=== PATIENT | female | born 1965 | race Caucasian/White ===

== ENCOUNTER 2020-03-07 11:47 | Outpatient (CLI) | payer OTHER, SELFPAY ==
[2020-03-07 13:24] LABS: Thyroid Stimulating Hormone 0.081 uIU/mL (0.465-4.680)
[2020-03-07 13:49] LABS: Free T4 Free Thyroxine 1.49 ng/mL (0.78-2.19)
[2020-03-11 12:10] LABS: Triiodothyronine T3 Free 2.9 pg/mL (2.3-4.2)
== END 2020-03-07 11:48 | disposition home or self-care (01) ==
PROVIDERS: Visit Provider Internal Medicine Endocrinology, Diabetes & Metabolism
DX: E03.9 Hypothyroidism, unspecified (principal)
CPT/HCPCS: 36415; 84439; 84443; 84481

== ENCOUNTER 2020-03-24 12:31 | Outpatient (CLI) | payer OTHER, SELFPAY ==
[2020-03-24 14:18] LABS: Thyroid Stimulating Hormone 0.116 uIU/mL (0.465-4.680)
== END 2020-03-24 12:32 | disposition home or self-care (01) ==
PROVIDERS: PCP Physician Assistant; Visit Provider Internal Medicine Endocrinology, Diabetes & Metabolism
DX: E03.9 Hypothyroidism, unspecified (principal)
CPT/HCPCS: 36415; 84439; 84443

== ENCOUNTER 2020-05-05 17:04 | Outpatient (CLI) | payer OTHER, SELFPAY ==
[2020-05-05 18:05] LABS: Thyroid Stimulating Hormone 0.075 uIU/mL (0.465-4.680)
[2020-05-05 18:25] LABS: Free T4 Free Thyroxine 1.17 ng/mL (0.78-2.19)
== END 2020-05-05 17:05 | disposition home or self-care (01) ==
LOC: ANHLAB 17:06
PROVIDERS: PCP Physician Assistant; Visit Provider Internal Medicine Endocrinology, Diabetes & Metabolism
DX: E89.0 Postprocedural hypothyroidism (principal); Z68.25 Body mass index [BMI] 25.0-25.9, adult
CPT/HCPCS: 36415; 84439; 84443

== ENCOUNTER 2020-06-27 13:41 | Outpatient (CLI) | payer OTHER, SELFPAY ==
[2020-06-27 17:26] LABS: Thyroid Stimulating Hormone 0.271 uIU/mL (0.465-4.680)
[2020-06-27 17:40] LABS: Free T4 Free Thyroxine 1.35 ng/mL (0.78-2.19)
== END 2020-06-27 13:42 | disposition home or self-care (01) ==
PROVIDERS: PCP Physician Assistant; Visit Provider Internal Medicine Endocrinology, Diabetes & Metabolism
DX: E89.0 Postprocedural hypothyroidism (principal)
CPT/HCPCS: 36415; 84439; 84443

== ENCOUNTER 2020-09-11 16:57 | Outpatient (CLI) | payer OTHER, SELFPAY ==
[2020-09-11 19:01] LABS: Free T4 Free Thyroxine 0.95 ng/mL (0.78-2.19)
== END 2020-09-11 16:58 | disposition home or self-care (01) ==
LOC: ANHLAB 16:58
PROVIDERS: PCP Physician Assistant; Visit Provider Internal Medicine Endocrinology, Diabetes & Metabolism
DX: E89.0 Postprocedural hypothyroidism (principal)
CPT/HCPCS: 36415; 84439; 84443

== ENCOUNTER 2020-10-31 09:38 | Outpatient (CLI) | payer OTHER, SELFPAY ==
[2020-10-31 10:57] LABS: Free T4 Free Thyroxine 1.11 ng/mL (0.78-2.19)
== END 2020-10-31 09:39 | disposition home or self-care (01) ==
LOC: ANHLAB 09:39
PROVIDERS: PCP Physician Assistant; Visit Provider Internal Medicine Endocrinology, Diabetes & Metabolism
DX: E89.0 Postprocedural hypothyroidism (principal)
CPT/HCPCS: 36415; 84439; 84443

== ENCOUNTER 2021-03-16 14:06 | Outpatient (CLI) | payer OTHER, SELFPAY ==
[2021-03-16 15:40] LABS: Free T4 Free Thyroxine 1.03 ng/mL (0.78-2.19)
== END 2021-03-16 14:07 | disposition home or self-care (01) ==
LOC: ANHLAB 14:09
PROVIDERS: PCP Physician Assistant; Visit Provider Internal Medicine Endocrinology, Diabetes & Metabolism
DX: E89.0 Postprocedural hypothyroidism (principal)
CPT/HCPCS: 36415; 84439; 84443

== ENCOUNTER 2021-06-16 07:57 | Outpatient (CLI) | payer OTHER, SELFPAY ==
[2021-06-16 09:14] LABS: Basophils Percent Auto 0.3 % (0.2-1.2); Eosinophils Absolute Auto 0.2 K/mm3 (0-0.3); Hematocrit 41.5 % (37.0-47.0); Hemoglobin 13.2 g/dL (12.0-15.0); Immature Granulocyte Absolute 0.01 K/mm3 (0.00-0.031); Immature Granulocyte Percent A 0.3 % (0-0.5); Lymphocytes Absolute Auto 1.46 K/mm3 (0.9-3.2); Mean Corpuscular HGB Conc 31.8 g/dl (32-36); Mean Corpuscular Hemoglobin 30.6 pg (26-34); Mean Corpuscular Volume 96.3 fl (80-100); Mean Platelet Volume 9.7 fl (7.4-10.4); Monocytes Absolute Auto 0.4 K/mm3 (0.1-0.6); Monocytes Percent Auto 12.6 % (2.6-8.5); Neutrophils Absolute Auto 1.4 K/mm3 (1.3-6.7); Neutrophils Percent Auto 38.8 % (45.5-73.1); Platelet Count Result 234 k/mm3 (150-375); Red Blood Count 4.31 M/mm3 (4.2-5.4); Red Cell Distribution Width 12.8 % (11.5-14.5); White Blood Count 3.5 K/mm3 (4.5-10.0)
[2021-06-16 09:35] LABS: Alanine Aminotransferase 21 U/L (4-35); Albumin Level 4.3 g/dL (3.5-5.1); Alkaline Phosphatase 62 U/L (38-126); Amylase 69 U/L (30-110); Anion Gap 8 mmol/L (8-16); Aspartate Amino Transferase 29 U/L (14-36); Bilirubin,Total 0.4 mg/dL (0.2-1.3); Blood Urea Nitrogen 12 mg/dL (7-17); Calcium 9.7 mg/dL (8.4-10.2); Carbon Dioxide 26 mmol/L (22-30); Chloride 102 mmol/L (98-107); Cholesterol 198 mg/dL (0-200); Estimated Glomerular Filt Rate > 60; Glucose 93 mg/dL (65-110); HDL Direct 65 mg/dL; Lipase 48 U/L (23-300); Potassium 3.9 mmol/L (3.4-5.0); Sodium 136 mmol/L (137-145); Triglycerides 71 mg/dL (<150)
[2021-06-16 09:46] LABS: LDL Cholesterol Direct 99 mg/dL
[2021-06-16 09:50] LABS: Vitamin D 25 Hydroxy 60.4 ng/mL
== END 2021-06-16 07:58 | disposition home or self-care (01) ==
PROVIDERS: PCP Physician Assistant; Visit Provider Physician Assistant
DX: R10.11 Right upper quadrant pain (principal); E55.9 Vitamin D deficiency, unspecified; Z00.00 Encounter for general adult medical examination without abnormal findings; Z13.1 Encounter for screening for diabetes mellitus; Z13.0 Encounter for screening for diseases of the blood and blood-forming organs and certain disorders involving the immune mechanism; Z13.220 Encounter for screening for lipoid disorders
CPT/HCPCS: 36415; 80053; 80061; 82150; 82306; 83690; 85025

== ENCOUNTER 2021-09-01 17:01 | Outpatient (CLI) | payer OTHER, SELFPAY ==
[2021-09-01 17:49] LABS: Free T4 Free Thyroxine 1.29 ng/mL (0.78-2.19)
== END 2021-09-01 17:02 | disposition home or self-care (01) ==
LOC: ANHLAB 17:02
PROVIDERS: PCP Physician Assistant; Visit Provider Internal Medicine Endocrinology, Diabetes & Metabolism
DX: E89.0 Postprocedural hypothyroidism (principal)
CPT/HCPCS: 36415; 84439; 84443

== ENCOUNTER 2022-03-16 17:02 | Outpatient (CLI) | payer OTHER, SELFPAY ==
[2022-03-16 18:59] LABS: Free T4 Free Thyroxine 1.15 ng/mL (0.78-2.19)
== END 2022-03-16 17:03 | disposition home or self-care (01) ==
LOC: ANHLAB 17:03
PROVIDERS: PCP Physician Assistant; Visit Provider Internal Medicine Endocrinology, Diabetes & Metabolism
DX: E89.0 Postprocedural hypothyroidism (principal)
CPT/HCPCS: 36415; 84439; 84443

== ENCOUNTER 2022-11-23 12:25 | Outpatient (CLI) | payer OTHER, SELFPAY ==
[2022-11-23 13:25] LABS: Free T4 Free Thyroxine 1.18 ng/mL (0.78-2.19)
== END 2022-11-23 12:26 | disposition home or self-care (01) ==
LOC: ANHLAB 12:26
PROVIDERS: PCP Physician Assistant; Visit Provider Internal Medicine Endocrinology, Diabetes & Metabolism
DX: E89.0 Postprocedural hypothyroidism (principal)
CPT/HCPCS: 36415; 84439; 84443

== ENCOUNTER 2023-11-18 07:48 | Outpatient (CLI) | payer OTHER, SELFPAY | END 2023-11-18 07:49 | disposition home or self-care (01) | LOC: ANHLAB 07:49 | PROVIDERS: PCP Physician Assistant; Visit Provider Internal Medicine Endocrinology, Diabetes & Metabolism | DX: E89.0 Postprocedural hypothyroidism (principal) | CPT/HCPCS: 36415; 84439; 84443 ==

== ENCOUNTER 2024-02-28 07:59 | Outpatient (CLI) | payer OTHER, SELFPAY ==
[2024-02-28 08:45] LABS: Basophils Percent Auto 0.6 % (0.2-1.2); Eosinophils Absolute Auto 0.2 K/mm3 (0-0.3); Hematocrit 38.9 % (37.0-47.0); Hemoglobin 12.7 g/dL (12.0-15.0); Lymphocytes Absolute Auto 1.45 K/mm3 (0.9-3.2); Lymphocytes Percent Auto 41.5 % (18.3-44.2); Mean Corpuscular HGB Conc 32.6 g/dl (32-36); Mean Corpuscular Hemoglobin 31.1 pg (26-34); Mean Corpuscular Volume 95.1 fl (80-100); Mean Platelet Volume 9.3 fl (7.4-10.4); Monocytes Absolute Auto 0.4 K/mm3 (0.1-0.6); Monocytes Percent Auto 11.5 % (2.6-8.5); Neutrophils Absolute Auto 1.4 K/mm3 (1.3-6.7); Neutrophils Percent Auto 40.4 % (45.5-73.1); Platelet Count Result 224 k/mm3 (150-375); Red Blood Count 4.09 M/mm3 (4.2-5.4); Red Cell Distribution Width 13.2 % (11.5-14.5); White Blood Count 3.5 K/mm3 (4.5-10.0)
[2024-02-28 08:54] LABS: Alanine Aminotransferase 21 U/L (6-35); Albumin Level 4.1 g/dL (3.5-5.1); Alkaline Phosphatase 61 U/L (38-126); Anion Gap 2 mmol/L (4-12); Aspartate Amino Transferase 27 U/L (14-36); Bilirubin,Total 0.5 mg/dL (0.2-1.3); Blood Urea Nitrogen 12 mg/dL (7-17); Calcium 9.5 mg/dL (8.4-10.2); Carbon Dioxide 28 mmol/L (22-30); Chloride 110 mmol/L (98-107); Cholesterol 175 mg/dL (0-200); Estimated Glomerular Filt Rate > 60; Glucose 91 mg/dL (65-110); HDL Direct 63 mg/dL; Sodium 140 mmol/L (137-145); Triglycerides 85 mg/dL (<150)
[2024-02-28 09:05] LABS: LDL Cholesterol Direct 96 mg/dL
== END 2024-02-28 08:00 | disposition home or self-care (01) ==
LOC: ANHLAB 08:02
PROVIDERS: PCP Physician Assistant; Visit Provider Physician Assistant
DX: Z00.00 Encounter for general adult medical examination without abnormal findings (principal); E89.0 Postprocedural hypothyroidism; Z13.29 Encounter for screening for other suspected endocrine disorder; Z13.0 Encounter for screening for diseases of the blood and blood-forming organs and certain disorders involving the immune mechanism; Z13.220 Encounter for screening for lipoid disorders
CPT/HCPCS: 36415; 80053; 80061; 85025

== ENCOUNTER 2024-06-05 16:54 | Outpatient (CLI) | payer OTHER, SELFPAY ==
[2024-06-05 18:18] LABS: Free T4 Free Thyroxine 1.32 ng/mL (0.78-2.19)
== END 2024-06-05 16:55 | disposition home or self-care (01) ==
LOC: ANHLAB 16:56
PROVIDERS: PCP Physician Assistant; Visit Provider Internal Medicine Endocrinology, Diabetes & Metabolism
DX: E89.0 Postprocedural hypothyroidism (principal)
CPT/HCPCS: 36415; 84439; 84443

== ENCOUNTER 2024-06-11 17:06 | Outpatient (CLI) | payer OTHER, SELFPAY ==
[2024-06-11 18:22] LABS: Vitamin D 25 Hydroxy 40.8 ng/mL
== END 2024-06-11 17:07 | disposition home or self-care (01) ==
LOC: ANHLAB 17:06
PROVIDERS: PCP Physician Assistant; Visit Provider Internal Medicine Endocrinology, Diabetes & Metabolism
DX: E55.9 Vitamin D deficiency, unspecified (principal)
CPT/HCPCS: 36415; 82306

== ENCOUNTER 2025-01-17 17:11 | Outpatient (CLI) | payer OTHER, SELFPAY ==
--- OUTSIDE RECORDS SUMMARY | 2025-01-17 17:15 | XMS_ITS | Clinical Summary ---
Author Organization [address] Address [address] [place] [address] Care Team Providers Care Rn Charge Name Role Phone Sara Simpson Primary Care Provider [phone] Dima Velazquez MD Unavailable [phone] Allergies Active Allergy Reactions Criticality Noted Date Comments Adhesive Other (See comments) Low 04/04/2019 Reaction: Adhesive Tape-Silicones Piperacillin-Tazobact am-Dextrs Eye irritation Medium 03/30/2018 Sulfa Hives Reaction: Hives, Sulfa (Sulfonamide Antibiotics) Rash,Other (See comments) Medium 08/28/2013 Reaction: Medications cholecalciferol (VITAMIN D-3) 1,000 unit capsule 1 capsule (1,000 Units total) daily Active vitamin B comp with C no.4 150 mg tablet Rx: Super B Complex Active multivitamin (MULTIPLE VITAMINS DAILY ORAL) Rx: Multi Vitamin Daily Active levothyroxine (SYNTHROID) 88 mcg tablet 1 Active metroNIDAZOLE (METROGEL) 1 % gelIndications: Acne Rosacea Apply topically daily 45 g 1 4 Active ofloxacin (OCUFLOX) 0.3 % ophthalmic solutionIndicat ions:Hordeolum externum of left lower eyelid instill 1 drops in left eye every 4 hours for 2 days, then 2 drops 4 times daily on days 3 through 7 10 mL 4 Active Active Problems Problem Noted Date Diagnosed Date Rosacea 11/23/2021 Assessment & Plan (2024 2:21 PM CDT): Stable, continue Metrogel Assessment & Plan (11/23/2021 10:03 AM HOT ROOM ATTENDANT): New issue: trial metrogel. Counseled pt on rosacea. If no improvement may need to see dermatology. BMI 25.0-25.9,adult 04/04/2019 Assessment & Plan (06/12/2021 8:20 AM CDT): Educated patient on healthy diet/exercise plan. Exercise 150min-300min per week of moderate intensity. Diet: good, healthy protein (eggs, nuts, peanut butter, chicken, fish, turkey, less pork/beef), lots of vegetables, less carbohydrates and less sugar. Assessment & Plan (11/12/2019 8:27 AM HOT ROOM ATTENDANT): Educated patient on healthy diet/exercise plan. Exercise 150min-300min per week of moderate intensity. Diet: good, healthy protein (eggs, nuts, peanut butter, chicken, fish, turkey, less pork/beef), lots of vegetables, less carbohydrates and less sugar. Assessment & Plan (10/31/2019 9:11 AM HOT ROOM ATTENDANT): Educated patient on healthy diet/exercise plan. Exercise 150min-300min per week of moderate intensity. Diet: good, healthy protein (eggs, nuts, peanut butter, chicken, fish, turkey, less pork/beef), lots of vegetables, less carbohydrates and less sugar. Assessment & Plan (04/04/2019 9:40 AM CDT): BMI is okay. Normal range is 18-25 and overweight is 25-30. Continue to work on eating healthy and exercising at least 150 minutes per week. Health maintenance examination 04/02/2019 Overview (04/13/2024): PMH 02/27/24 Last pap: 11/12/2019 Last mammogram:04/13/24 Last dexa: Last colonoscopy/cologuard: 07/19/2017, repeat 2026 Last tdap:06/12/2021 Last Prevnar/pneumovax: Last Shingrix: completed Last eye exam: 2019 Assessment & Plan (2024 2:07 PM CDT): PMH 02/27/24 Last pap: 11/12/2019 Last mammogram:02/14/23 Last dexa: Last colonoscopy/cologuard: 07/19/2017, repeat 2026 Last tdap:06/12/2021 Last Prevnar/pneumovax: Last Shingrix: completed Last eye exam: 2019 Assessment & Plan (06/12/2021 8:20 AM CDT): PMH 06/12/21 Last pap: 05/2016, 11/12/2019 Last mammogram:07/2018, 05/15/2020 Last dexa: Last colonoscopy/cologuard: 07/19/2017, repeat 2026 Last tdap:02/17/2011 , 06/12/2021 Last Prevnar/pneumovax: Last Shingrix: info Last eye exam: 2019 Assessment & Plan (11/12/2019 8:05 AM HOT ROOM ATTENDANT): PMH: 11/12/2019 Last pap: 05/2016, 11/12/2019 Last mammogram:07/2018, Last dexa: Last colonoscopy/cologuard: 07/19/2017, repeat 2026 Last tdap:02/17/2011 Last Prevnar/pneumovax: Last Shingrix: info Last eye exam: 2019 Postsurgical hypothyroidism 01/26/2016 Assessment & Plan (2024 2:21 PM CDT): Stable, followed by endocrinology. Recent TSH normal Assessment & Plan (06/12/2021 8:21 AM CDT): Followed by specialist., stable Raynaud disease 01/26/2016 Assessment & Plan (2024 2:21 PM CDT): Stable Vitamin D deficiency 01/26/2016 Assessment & Plan (2024 2:21 PM CDT): Stable, continue vitamin-D Assessment & Plan (06/12/2021 8:21 AM CDT): Stable, continue vitamin-D Resolved Problems Problem Noted Date Diagnosed Date Resolved Date Allergic contact dermatitis due to plants, except food 04/04/2019 2024 Assessment & Plan (04/04/2019 8:15 AM CDT): Take all prednisone as directed to avoid rebound breakout Take cool showers May use caladryl/benadryl/ivyrest as needed Avoid plant in future Incontinence in female 07/19/201704/02 Cystocele, unspecified (CODE) 06/06/2017 04/02/2019 Goiter 09/03/2014 04/02/2019 Raynaud's phenomenon 03/09/2014 019 Overview (01/28/2017): Raynauds syndrome Immunizations Immunization Administration Dates Next Due Flucelvax Influenza Quad 08/19/2018 Influenza, Quadrivalent, Spl it, Intramuscular 11/08/2013 Influenza, Unspecified 07/24/2023(Deferr ed: Patient Refused),07/28/2022,08/24/2021, 020,08/04/2019 Tdap 06/12/2021,02/17/2011 ZOSTER Recombinant 06/11/2022,11/23/2021 Surgical History Surgery Date Site/Laterality Comments IR FINE NEEDLE ASPIRATION W IMAGE GUIDANCE 12/04/2012 N/A THYROIDECTOMY APPENDECTOMY 03/24/2018 - 04/22/2018 COLONOSCOPY 07/19/2017 DILATION AND CURETTAGE, DIAG NOSTIC / THERAPEUTIC x2 Medical History Medical History Date Comments Cystocele, unspecified (CODE) 06/06/2017 Goiter 09/03/2014 Incontinence in female 07/19/2017 Postsurgical hypothyroidism 01/26/2016 Raynaud disease 01/26/2016 Vitamin D deficiency 01/26/2016 Curvature of spine woods Family History Medical History Relation Name Comments Arthritis Father G Asthma Father G Asthma; COPD Father G Osteoarthritis Father G Arthritis Mother C Breast cancer Mother C Rheum arthritis Mother C Rheumatoid a rthritis; Bone cancer Paternal Grandfather Prostate cancer Paternal Grandfather Heart attack Sister T age 56/stents p laced Relation Name Status Comments Father G Maternal Grandfather Maternal Grandmother Mother C Alive Paternal Grandfather Paternal Grandmother Sister T Alive Social History Tobacco Use Types Packs/Day Years Used Date Smoking Tobacco: Never Smokeless Tobacco: Never Alcohol Use Standard Drinks/Week Comments No 0 (1 standard drink = 0.6 oz pur e alcohol) AUDIT-C Answer Date Recorded Q1: How often do you have a drink containing alcohol? Never 2024 Q2: How many drinks containi ng alcohol do you have on a typical day when you are drinking? Patient does not drink Q3: How often do you have si x or more drinks on one occasion? Never 2024 PHQ-2 Answer Date Recorded PHQ-2 Total Score (If total score is 3 or more points, staff should administer the PHQ-9) 0 2024 Comments No Sex and Gender Information Value Date Recorded Sex Assigned at Not on file Legal Sex Female 1:03 AM HOT ROOM ATTENDANT Gender Identity Not on file Sexual Orientation Not on file Obstetrics History Para Term AB IAB SAB Ectopic Multiple Livin g Live Births 2 Date Outcome GA Total Labor Labor/2nd/3rd Weight Sex Type Anes PTL Orly A1 A5 Name Clin Last Filed Vital Signs Vital Sign Reading Time Taken Comments Blood Pressure 113/80 03/07/2024 12:20 PM CDT Pulse 83 03/07/2024 12:20 PM CDT Temperature 36.6 C (97.8 F) 03/07/2024 12:20 PM CDT Respiratory Rate 14 03/07/2024 12:20 PM CDT Oxygen Saturation 97% 03/07/2024 12:20 PM CDT Inhaled Oxygen Concentration - - Weight 76.7 kg (169 lb) 03/07/2024 12:20 PM CDT Height 172.7 cm (5' 8 ) 03/07/2024 12:20 PM CDT Body Mass Index 25.7 03/07/2024 12:20 PM CDT Plan of Treatment Health Maintenance Due Date Last Done Comments Hepatitis C Screening 1966 Hepatitis B Screening 02/28/1984 Cervical Cancer Screening 11/12/2020 11/12/2019, Covid-19 Vaccine ( season) 2024 11/03/2021, 02/10/2021, 01/20/2021 Influenza Vaccine (#1) 2024 , 08/24/2021, 07/14/2020, Additional history exists Depression Screening 02/26/2025 2024, 2024, 06/11/2022, Additional history exists Regular Well Visit/Exam 18-64 02/26/2025 2024, 06/12/2021, 11/12/2019, Additional history exists Breast Cancer Screening-Mammogram 04/13/2025 04/13/2024, 02/14/2023, 09/24/2021, Additional history exists Colon Cancer Screening-Colonoscopy 07/19/2027 07/19/2017 DTaP/Tdap/Td Vaccine (3 - Td or Tdap) 06/12/2031 06/12/2021, 02/17/2011 Colon Cancer Screening-CT Colonography Discontinued 07/19/2017 Colon Cancer Screening-DNA Stool Discontinued 07/19/2017 Colon Cancer Screening-FIT Discontinued 07/19/2017 Colon Cancer Screening-Sigmoidoscopy Discontinued 07/19/2017 Zoster Vaccine Completed 06/11/2022, 11/23/2021 Pneumococcal vaccine <65 Aged Out No longer eligible based on patient's age to complete this topic Procedures Procedure Name Priority Date/Time Associated Diagnosis Comments SCREENING MAMMOGRAM BILATERAL W [place] Schedule Routine, Read Routine (OP Routine) 04/13/2024 1:32 PM CDT Screening mammogram, encounter for THINPREP IMAGING PAP AND HPV MRNA E6/E7 REFLEX HPV 16,18/45 Routine 11/12/2019 8:09 AM HOT ROOM ATTENDANT Pap smear, as part of routine gynecological examination Special screening examination for human papillomavirus (HPV) COLONOSCOPY Routine 07/19/2017 from Last 3 Months or Most Recently Relevant to Health Maintenance Results * Screening Mammogram Bilateral W [place] (04/13/2024 1:32 PM CDT) Anatomical Region Laterality Modality Breast Bilateral Mammography Impressions 04/13/2024 2:14 PM CDT BI-RADS ATLAS category (overall): 2 - Benign There is no mammographic evidence of malignancy. A 1 year screening mammogram is recommended. The patient has been or will be contacted. We recommend annual screening mammography for women at average risk of breast cancer beginning at age 40, based on guidelines of the [place] [employer] (ACR Practice Parameter for the Performance of Screening and Diagnostic Mammography) and [place] [employer]. For women with and elevated risk of breast cancer, please refer to the ACR Practice Parameter for specific screening recommendations. The patient will be entered into a reminder system with a target due date of 1 year for her next screening exam. Narrative 04/13/2024 2:14 PM CDT Screening Mammogram Bilateral W [place]: 04/13/24 The study was acquired using full field digital technology and interpreted from soft copy. 2D digital mammographic views, as well as 3D digital tomosynthesis were performed in the CC and MLO projections. CLINICAL: Screening mammogram, encounter for. No relevant medical history has been documented for this patient. History of breast cancer in Mother. COMPARISONS: 02/14/2023 Screening Mammogram Bilateral W [place] 09/24/2021 Screening Mammogram Bilateral W [place] 05/15/2020 Screening Mammogram 2D Bilateral 08/18/2018 Diagnostic Mammogram Right W [place] 08/14/2018 Screening Mammogram Bilateral W [place] 03/22/2018 Screening Mammogram 2D Bilateral 05/20/2017 Screening Mammogram Bilateral W [place] 05/17/2016 Screening Mammogram Bilateral W [place] 05/16/2015 Screening Mammogram Bilateral W [place] BREAST TISSUE: The breasts are heterogeneously dense, which may obscure small masses. FINDINGS: There are benign calcifications in both breasts. No suspicious masses, suspicious calcifications, or other suspicious findings are seen within either breast. There has been no suspicious change. us Self Screening Mammogram IMG MAMMO PROCEDURES Fi nal Result * ThinPrep Imaging Pap and HPV mRNA E6/E7 Reflex HPV 16,18/45 (11/12/2019 8:09 AM HOT ROOM ATTENDANT) CLINICAL INFORMATION: [facility] [place] Comment:Information not prov ided LMP [facility] - Comment:INFORMATION NOT PROV IDED Previous Pap [facility] - Comment:INFORMATION NOT PROV IDED Prev. Bx [facility] - Comment:INFORMATION NOT PROV IDED SOURCE: [facility] - Comment:Information not prov ided Pap, specimen adequacy [facility] - Comment:SATISFACTORY FOR RAO LUATION HPV interp [facility] - Comment: Negative for intraepithelial lesion or malignancy. Atrophic pattern; predominantly parabasal cells COMMENTS [facility] - Comment: This Pap test has been evaluated with computer assisted technology. Business Performance Advisor [facility] - Comment: JESSICA, CT(ASCP) CT screening location: [place] [address] [address] [place] [address] Comment [facility] - Comment: EXPLANATORY NOTE: The Pap is a screening test for cervical cancer. It is not a diagnostic test and is subject to false negative and false positive results. It is most reliable when a satisfactory sample, regularly obtained, is submitted with relevant clinical findings and history, and when the Pap result is evaluated along with historic and current clinical information. Human papillomavirus RNA, High Risk E6/E7 Not Detected Not Detected [facility] Comment: This test was performed using the APTIMA HPV Assay ([employer] This assay detects E6/E7 viral messenger RNA (mRNA) from 14 high-risk HPV types (16,18,31,33,35,39,45,51,52,56,58,59,66,68). The analytical performance characteristics of this assay have been determined by [employer]. The modifications have not been cleared or approved by the FDA. This assay has been validated pursuant to the CLIA regulations and is used for clinical purposes. Swab 11/12/2019 8:09 AM HOT ROOM ATTENDANT 11/13/2019 8:39 AM HOT ROOM ATTENDANT Narrative Resulting Agency Comment Performing Organization Information: Site ID: [place] [facility] Address: [address] [address] Director: Homar Burnett D.O., MPH Site ID: [place] [facility] Address: [address] [address] [place] [address] Director: Esdras Abarca Sara [facility] CYTOLOGY ORDERABLES Final Result [facility] [place], [place] [facility] [place] Fisher * Colonoscopy (07/19/2017) Anatomical Region Laterality Modality Other us Historical Provider MD ENDOSCOPY PROCEDURES Xochitl l Result from Last 3 Months or Most Recently Relevant to Health Maintenance Insurance [employer] Address: [facility] [id number] [address] [facility] [address] Member Subscriber Plan / Payer (Ef fective 2021-Present) Name:Ena Mobley Member ID:[id number] Relation to Subscriber:Self Name:Ena Mobley Subscriber ID:[id number] Payer ID:[id number] Type:[employer] HMO/PPO Address: [facility] [address] [place] [id number] Care Teams Rn Charge Relationship Specialty Start Date End Date Sara Simpson PA [address] [place] [address] PCP - General Physician Assistant Professor Of Marine Biology 04/02/19 Dima Velazquez MD [address] [place] [address] Consulting Physician Family Medicine 04/02/19
--- OUTSIDE RECORDS SUMMARY | 2025-01-17 17:15 | XMS_ITS | Clinical Summary ---
Author Organization [facility] Address [facility] [facility] [place] [address] Care Team Providers Care Afternoon Babysitter Name Role Phone Sara Simpson Primary Care Provider [phone] Michele Goins MD Unavailable [phone] Source Comments [facility],non-owned Affiliates and Associated Physician Practices is amultiple site organization consisting of ambulatory clinics and hospital sitesin [place], [place], [place] and [place]. This disclosure is being madepursuant to the Care Everywhere program and may not contain all information available regarding this patient. Last updated 18.[facility] Allergies Active Allergy Reactions Criticality Noted Date Comments Sulfa Drugs 08/28/2013 Sulfa Drugs Rash Medium 03/29/2018 Piperacillin Sod-Tazobactam So Eye Itching Medium 04/2018 Medications * Be aware that medications may not be up to date on this document. Alwaysverify current medications with the patient. Medication Sig Dispensed Refills Start Date End Date Status levothyroxine (SYNTHROID) 125 MCG tablet Take 125 mcg by mouth daily before breakfast Active HYDROcodone-acetamin ophen (NORCO) 5-325 MG tablet Take 1 tablet by mouth every 6 hours as needed for Pain 20 tablet 03/31/2018 Active Active Problems Problem Noted Date Diagnosed Date Acute abdominal pain in right upper quadrant 03/2018 Acute appendicitis with localized peritonitis Goiter 08/28/2013 Overview (08/28/2013): S/P FNA domnant right lobe nodule in , benign FNA left nodule 2013, benign Family History Medical History Relation Name Comments Asthma Father Cancer Mother breast Relation Name Status Comments Father Alive 73 Mother Alive 71 Sister Alive Social History Tobacco Use Types Packs/Day Years Used Date Smoking Tobacco: Never Smokeless Tobacco: Never Alcohol Use Standard Drinks/Week Comments No 0 (1 standard drink = 0.6 oz pur e alcohol) Sex and Gender Information Value Date Recorded Sex Assigned at Not on file Gender Identity Not on file Sexual Orientation Not on file Last Filed Vital Signs Vital Sign Reading Time Taken Comments Blood Pressure 92/49 03/31/2018 8:01 AM CDT Pulse 72 03/31/2018 8:01 AM CDT Temperature 36.6 C (97.8 F) 03/31/2018 8:01 AM CDT Respiratory Rate 16 03/31/2018 8:01 AM CDT Oxygen Saturation 99% 03/31/2018 8:01 AM CDT Inhaled Oxygen Concentration - - Weight 71.5 kg (157 lb 10.1 oz) 03/31/2018 3:41 AM CDT Height 172.7 cm (5' 8 ) 03/30/2018 4:57 AM CDT Body Mass Index 23.97 03/30/2018 4:57 AM CDT Plan of Treatment Health Maintenance Due Date Last Done Comments COLOGUARD (AGES 45-75) - COL ON CA SCREENING 1966 COLON MONITORING 1966 COLONOSCOPY - COLON CA SCREENING 1966 CT COLONOGRAPHY - COLON CA SCREENING 1966 Colorectal Cancer Screening 1966 FIT - COLON CA SCREENING 1966 FLEX SIG - COLON CA SCREENING 1966 LIPID TESTING 1966 MAMMOGRAM 1966 PAP SMEAR 1966 HIV SCREENING 1981 HEPATITIS C SCREENING 02/23/1984 DTAP/TDAP/TD VACCINES (1 - Tdap) 1985 HEPATITIS B VACCINE (1 of 3 - 19+ 3-dose series) 1985 PNEUMOCOCCAL VACCINE 50+ (1 of 1 - PCV) 02/28/2016 ZOSTER VACCINE (1 of 2) 02/28/2016 COVID-19 VACCINE ( - 2023-2 5 season) 2024 INFLUENZA VACCINE (#1) 2024 DEPRESSION SCREENING 10/24/2024 HIB VACCINE Aged Out No longer eligi ble based on patient's age to complete this topic HPV VACCINE Aged Out No longer eligi ble based on patient's age to complete this topic MENINGOCOCCAL (Group B) VACC INE SHARED DECISION-MAKING Aged Out No longer eligibl e based on patient's age to complete this topic MENINGOCOCCAL GROUPS A/C/Y/W VACCINE Aged Out No longer eligible b ased on patient's age to complete this topic PNEUMOCOCCAL VACCINE Aged Out No long er eligible based on patient's age to complete this topic Advance Directives * Full Code (Latest Code Status on File) Date Activated Date Inactivated Comments 03/30/2018 12:40 PM 03/31/2018 11:26 AM * Full Code Date Activated Date Inactivated Comments 03/29/2018 11:34 PM 03/30/2018 12:40 PM Care Teams Afternoon Babysitter Relationship Specialty Start Date End Date Sara Simpson PA PCP - General Physician Burrer Operator 03/29/18 Michele Goins MD [address] [place] [address], [address] [address] Endocrinology 08/28/13
--- OUTSIDE RECORDS SUMMARY | 2025-01-17 17:15 | XMS_ITS | Continuity of Care Document ---
Author Organization [facility] Address [address] [place] [address] Phone Care Team Providers Care Graphic Production Artist Name Role Phone Shaka PT, JAYMET, Erick Unavailable Unavailable Procedures Procedure Date Neuromuscular Re-Ed Therapeutic Exercise Neuromuscular Re-Ed Therapeutic Exercise Neuromuscular Re-Ed Therapeutic Exercise Therapeutic Activities Neuromuscular Re-Ed Therapeutic Exercise PT Evaluation Low Complexity Neuromuscular Re-Ed Therapeutic Exercise Therapeutic Activities Advance Directives Directive Yes / No Effective Date File Name No Information Encounters Encounter Description Practice Location Reason(s) For Visit Diagnoses Date Provider Providers Copied on Encounter [facility], [place], [place], [id number], tel:[phone] [place] No Information 2 Shaka Suarez. . [facility], [place], [place], [id number], tel:[phone] [place] No Information 2 Shaka Suarez. . Referring Provider: Access Direct. [facility], [place], [place], [id number], tel:[phone] [place] No Information 2 Shaka Suarez. . Referring Provider: Access Direct. [facility] [address] [facility] [address], [place], [place], [id number], tel:[phone] [place] No Information 2 Shaka Suarez. . Referring Provider: [facility] Direct. [facility] [facility] [address], [place], [place], [id number], tel:[phone] [employer] No Information 2 Shaka Suarez. . Referring Provider: [facility]. [facility] [facility] [address], [place], [place], [id number], tel:[phone] [place] No Information 2 Shaka Suarez. . Referring Provider: [facility]. Family History Family Member Type Diagnosis Age At Onset No Information Payers Payer name Insurance type Covered libertarian ID Ro rivera(s) [employer] [id number] Social History Type Description Quantity Date Captured Comments Sex Female Smoking Status No Information Chief Complaint And Reason For Visit No Information Reason For Referral Reason For Referral No Information History Of Present Illness Encounter Date Complaint History Of Prese nt Illness No Information Functional Status Date Functional Assessmen t No Information Instructions Date Instruction Additional Infor mation No Information Assessments Type Assessment Date No Information Patient Care Teams Name Effective Dates (start - stop) Status Members No Information
--- OUTSIDE RECORDS SUMMARY | 2025-01-17 17:15 | XMS_ITS | Referral Summary ---
Author Organization [address] Address [address] [place] [id number] Care Team Providers Care Litigation Legal Assistant Name Role Phone Sara Simpson Primary Care Provider [phone] Dima Velazquez MD Unavailable [phone] Allergies Active Allergy Reactions Criticality Noted Date [...] Metrogel Assessment & Plan (11/23/2021 10:03 AM REHAB LIAISON): New issue: trial metrogel. Counseled pt on [...] sugar. Assessment & Plan (11/12/2019 8:27 AM REHAB LIAISON): Educated patient on healthy diet/exercise plan. Exercise 150min-300min per week of moderate intensity. Diet: good, healthy protein (eggs, nuts, peanut butter, chicken, fish, turkey, less pork/beef), lots of vegetables, less carbohydrates and less sugar. Assessment & Plan (10/31/2019 9:11 AM REHAB LIAISON): Educated patient on healthy diet/exercise plan. Exercise [...] 2019 Assessment & Plan (11/12/2019 8:05 AM REHAB LIAISON): PMH: 11/12/2019 Last pap: 05/2016, 11/12/2019 Last [...] Refused),07/28/2022,08/24/2021, 020,08/04/2019 Tdap 06/12/2021,02/17/2011 ZOSTER Recombinant 06/11/2022,11/23/2021 Social History Tobacco Use Types Packs/Day Years [...] on file Legal Sex Female 1:03 AM REHAB LIAISON Gender Identity Not on file Sexual Orientation [...] 03/07/2024 12:20 PM CDT Plan of Treatment Not on file Procedures Procedure Name Priority Date/Time Associated Diagnosis Comments SCREENING MAMMOGRAM BILATERAL W MILTON Schedule Routine, Read Routine (OP Routine) 04/13/2024 1:32 PM CDT Screening mammogram, encounter for THINPREP IMAGING PAP AND HPV MRNA E6/E7 REFLEX HPV 16,18/45 Routine 11/12/2019 8:09 AM REHAB LIAISON Pap smear, as part of routine gynecological [...] age 40, based on guidelines of the [employer] (ACR Practice Parameter for the Performance of Screening and Diagnostic Mammography) and [employer]. For women [...] E6/E7 Reflex HPV 16,18/45 (11/12/2019 8:09 AM REHAB LIAISON) CLINICAL INFORMATION: [facility] Comment:Information not prov ided LMP [facility] Comment:INFORMATION NOT PROV IDED Previous Pap [facility] Comment:INFORMATION NOT PROV IDED Prev. Bx [facility] Comment:INFORMATION NOT PROV IDED SOURCE: [facility] Comment:Information not prov ided Pap, specimen adequacy [facility] Comment:SATISFACTORY FOR RAO LUATION HPV interp [facility] Comment: Negative for intraepithelial lesion or malignancy. Atrophic pattern; predominantly parabasal cells COMMENTS [facility] Comment: This Pap test has been evaluated with computer assisted technology. Hand Salter [facility] Comment: JESSICA, CT(ASCP) CT screening location: [place] [address] [address] [place] [address] Comment [facility] Comment: EXPLANATORY NOTE: The Pap is a [...] High Risk E6/E7 Not Detected Not Detected [facility] Comment: This test was performed using the APTIMA HPV Assay ([employer] This assay detects E6/E7 viral messenger RNA (mRNA) from 14 high-risk HPV types (16,18,31,33,35,39,45,51,52,56,58,59,66,68). The analytical performance characteristics of this assay have been determined by [facility]. The modifications have not been cleared or approved by the FDA. This assay has been validated pursuant to the CLIA regulations and is used for clinical purposes. Swab 11/12/2019 8:09 AM REHAB LIAISON 11/13/2019 8:39 AM REHAB LIAISON Narrative Resulting Agency Comment Performing Organization Information: Site ID: [id number] Name: [facility] Address: [address] [place] [address] Director: Homar Burnett D.O., MPH Site ID: Name: [facility] Address: [address] [place] [address] Director: Esdras Abarca us Sara [facility]TOLOG[facility] ORDERABLES Final Result [facility] Justin [place], [place] * Colonoscopy (07/19/2017) Anatomical Region Laterality Modality Other Historical Provider ENDOSCOPY PROCEDURES Xochitl l Result from Last 3 Months or Most Recently Relevant to Health Maintenance Insurance [facility] [facility] [id number] Care Teams Litigation Legal Assistant Relationship Specialty Start Date End Date Sara Simpson PA [address] [place] [address] PCP - General Physician Gunstock Spray Unit Feeder 04/02/19 Dima Velazquez MD [address] [place] [address] Consulting Physician Family Medicine 04/02/19
--- OUTSIDE RECORDS SUMMARY | 2025-01-17 17:15 | XMS_ITS | Encounter Summary ---
Author Organization [facility] Facility Care Team Providers Care Business Systems Advisor Name Role Phone Sara Simpson Primary Care Provider [phone] Dima Velazquez MD Unavailable [phone] Encounter Details Date Type Department Care Team (Latest Contact Info) Description 07/21/2017 Orders Only [facility] CLINCONV ProviderDonita MD [address] [place] [address] Social History Tobacco Use Types Packs/Day Years Used Date Smoking Tobacco: Never Assessed Alcohol Use Standard Drinks/Week Comments No 0 (1 standard drink = 0.6 oz pur e alcohol) Comments Unknown Sex and Gender Information Value Date Recorded Sex Assigned at Not on file 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 Historical Provider Final Res ult documented in this encounter Visit Diagnoses Not on filedocumented in this encounter Care Teams Business Systems Advisor Relationship Specialty Start Date End Date Sara Simpson PA [address] [place] [address] PCP - General Physician Program Engagement Director 04/02/19 Dima Velazquez MD [address] [place] [address] Consulting Physician Family Medicine 04/02/19 documented as of this encounter
--- OUTSIDE RECORDS SUMMARY | 2025-01-17 17:15 | XMS_ITS | Encounter Summary ---
Author Organization [facility] Facility Care Team Providers Care Insolvency Consultant Name Role Phone Sara Simpson Primary Care Provider [phone] Dima Velazquez MD Unavailable + [phone] Encounter Details Date Type Department Care Team (Latest Contact Info) Description 02/09/2016 Orders Only [facility] CLINCONV ProviderDonita MD [address] [place] [address] Social History Tobacco Use Types Packs/Day Years Used Date Smoking Tobacco: Never Assessed Alcohol Use Standard Drinks/Week Comments No 0 (1 standard drink = 0.6 oz pur e alcohol) Comments Unknown Sex and Gender Information Value Date Recorded Sex Assigned at Not on file 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 Historical Provider Final Res ult documented in this encounter Visit Diagnoses Not on filedocumented in this encounter Care Teams Insolvency Consultant Relationship Specialty Start Date End Date Sara Simpson PA [address] [place] [address] PCP - General Physician Insurance Policy Issue Clerk 04/02/19 Dima Velazquez MD [address] [place] [address] Consulting Physician Family Medicine 04/02/19 documented as of this encounter
[2025-01-17 18:25] LABS: Free T4 Free Thyroxine 1.16 ng/dL (0.78-2.19); Vitamin D 25 Hydroxy 50.7 ng/mL
== END 2025-01-17 17:12 | disposition home or self-care (01) ==
LOC: ANHLAB 17:13
PROVIDERS: PCP Physician Assistant; Visit Provider Internal Medicine Endocrinology, Diabetes & Metabolism
DX: E55.9 Vitamin D deficiency, unspecified (principal); E89.0 Postprocedural hypothyroidism
CPT/HCPCS: 36415; 82306; 84439; 84443

== ENCOUNTER 2025-10-23 08:21 | Outpatient (CLI) | payer OTHER, SELFPAY ==
--- OUTSIDE RECORDS SUMMARY | 2025-10-23 08:30 | XMS_ITS | Encounter Summary ---
Author Organization [facility] Address [address] [place] [address] Care Team Providers Care Warper Fixer Name Role Phone Sara Simpson Primary Care Provider [phone] Dima Velazquez MD Unavailable [phone] Encounter Details Date Type Department Care Team (Late st Contact Info) Description 10/07/2025 Results Follow-Up [facility] Family Medicine [address] [address] Sara Simpson PA [address] [place] [address] Pap and HPV, reflex to HPV Genotypes Social History Tobacco Use Types Packs/Day Years Used Date Smoking Tobacco: Never Smokeless Tobacco: Never Alcohol Use Standard Drinks/Week Comments Never 0 (1 standard drink = 0.6 oz pur e alcohol) PHQ-2 Answer Date Recorded PHQ-2 Total Score (If total score is 3 or more points, staff should administer the PHQ-9) 0 10/02/2025 PHQ-9 Answer Date Recorded PHQ-9 Total Score 0 10/02/2025 AUDIT-C Answer Date Recorded Q1: How often do you have a drink containing alc ohol? Never 10/02/2025 Q2: How many drinks containi ng alcohol do you have on a typical day when you are drinking? 1 or 2 10/02/2025 Q3: How often do you have six or more drinks on one occasion? 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
--- OUTSIDE RECORDS SUMMARY | 2025-10-23 08:30 | XMS_ITS | Encounter Summary ---
Author Organization [facility] Address [address] [place] [address] Care Team Providers Care Holistic Nutritionist Name Role Phone Sara Simpson Primary Care Provider Dima Velazquez MD Unavailable [phone] Reason for Visit * Reason Onset Date Comments Foot Injury 07/30/2025 Encounter Details Date Type Department Care Team (Late st Contact Info) Description 07/30/2025 Nurse Triage [facility] Family Medicine [address] [address] Sara Simpson PA [address] [place] [address] Social History Tobacco Use Types Packs/Day Years Used Date Smoking Tobacco: Never Smokeless Tobacco: Never Alcohol Use Standard Drinks/Week Comments No 0 (1 standard drink = 0.6 oz pur e alcohol) PHQ-2 Answer Date Recorded PHQ-2 Total Score (If total score is 3 or more points, staff should administer the PHQ-9) 0 08/02/2025 AUDIT-C Answer Date Recorded Frequency of Alcohol Consumption Not on file 08/02/2025 Q2: How many drinks containi ng alcohol do you have on a typical day when you are drinking? Patient does not drink Q3: How often do you have si x or more drinks on one occasion? 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 Pt thought the pain would improve over time, but she has noticed lingering swelling and warmth that occurs by the end of each day in that foot. Pt states her foot aches and hurts when walking. She sometimes feels a grinding sensation in her foot when she moves it a certain way. Denies any r edness or wounds in the foot or swelling/pain/discoloration of the calf muscle. Disposition See Within 3 Days in Office - Pt requesting appt with PCP on Tuesday or some time next week if possible. Not able to schedule in those parameters at this time. Routing to Sara Simpson PA clinical pool to follow up on scheduling. Care advice reviewed. Pt agrees to call back with worsening symptoms or further concerns. Reason for Disposition Foot still painful or swollen after 2 weeks No Initial Assessment on file. No Additional Information on file. Protocols Used Foot [id number] * Telephone Encounter - Sheree Aguilera RN - 07/30/2025 3:16 PM CDT Regarding: Mild to Moderate pain right foot ----- Message from Ariadne Gonzalez sent at 07/30/2025 3:05 PM CDT ----- Symptom Based Call Chief Complaint(s): Mild to Moderate pain right foot Duration: 1 month What type of symptom(s) is the patient experiencing? Non-Emergent. Is this a new or reoccurring symptom(s)? New What have you tried to help your symptom(s)? Nothing Why was appointment not scheduled? Appointment availability did not meet the patient's need. Additional Comments: Pt states while landscaping a month ago she dropped something on her foot thatcaused symptoms, she states usually by end of the day foot is swollen and warm to the touch and only when swollen. Pt is requesting appt with CALEB Ruiz only. Does message need to be routed? Yes-Action Needed documented in this encounter Plan of Treatment Not on file documented as of this encounter Visit Diagnoses Not on filedocumented in this encounter Care Teams Holistic Nutritionist Relationship Specialty Start Date End Date Sara Simpson PA [address] [place], [place] [phone] PCP - General Physician Planer Mill Grader 04/02/19 Dima Velazquez MD [address] [place] [address] Consulting Physician Family Medicine 04/02/19 documented as of this encounter
--- OUTSIDE RECORDS SUMMARY | 2025-10-23 08:30 | XMS_ITS | Encounter Summary ---
Author Organization [facility] Facility Care Team Providers Care Tetryl Dissolver Operator Name Role Phone Sara Simpson Primary Care Provider [phone] Dima Velazquez MD Unavailable [phone] Encounter Details Date Type Department Care Team (Latest Contact Info) Description 07/21/2017 Orders Only [facility] CLINCONV ProviderDonita MD [address] [place], [place] [id number] Social History Tobacco Use Types Packs/Day Years Used Date Smoking Tobacco: Never Assessed Alcohol Use Standard Drinks/Week Comments No 0 (1 standard drink = 0.6 oz pur e alcohol) Comments Unknown Sex and Gender Information Value Date Recorded Sex Assigned at Not on file 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
--- OUTSIDE RECORDS SUMMARY | 2025-10-23 08:30 | XMS_ITS | Clinical Summary ---
Author Organization [address] Address [address] [place] [id number] Care Team Providers Care Ore Grader Name Role Phone Sara Simpson Primary Care Provider [phone] Dima Velazquez MD Unavailable [phone] Allergies Active Allergy Reactions Criticality Noted Date Comments Adhesive Other (See comments) Low 04/04/2019 Reaction: Adhesive Tape-Silicones Piperacillin-Tazobact am-Dextrs Eye irritation Medium 03/30/2018 Sulfa Hives Reaction: Hives, Sulfa (Sulfonamide Antibiotics) Rash,Other (See comments) Medium 08/28/2013 Reaction: Medications cholecalcifero l (VITAMIN D-3) 1,000 unit capsule 1 capsule (1,000 Units total) daily Active vitamin B comp with C no.4 150 mg tablet Rx: Super B Complex Active multivitamin (MULTIPLE VITAMINS DAILY ORAL) Rx: Multi Vitamin Daily Active levothyroxine (SYNTHROID) 88 mcg tablet 06/09/20 21 Active metroNIDAZOLE (METROGEL) 1 % gelIndications :Acne Rosacea Apply topically daily 45 g 1 02/27/[address] (VOLTAREN) 50 mg EC tablet Take 1 tablet (50 mg total) by mouth 2 (two) times a day 09/18/20 25 025 Discontinued Active Problems Problem Noted Date Diagnosed Date Rosacea 11/23/2021 Assessment & Plan (10/03/2025 6:11 PM INFECTIOUS WASTE TECHNICIAN): Chronic, stable, continue Metrogel Assessment & Plan (2024 2:21 PM CDT): Stable, continue Metrogel Assessment & Plan (11/23/2021 10:03 AM INFECTIOUS WASTE TECHNICIAN): New issue: trial metrogel. Counseled pt on [...] sugar. Assessment & Plan (11/12/2019 8:27 AM INFECTIOUS WASTE TECHNICIAN): Educated patient on healthy diet/exercise plan. Exercise 150min-300min per week of moderate intensity. Diet: good, healthy protein (eggs, nuts, peanut butter, chicken, fish, turkey, less pork/beef), lots of vegetables, less carbohydrates and less sugar. Assessment & Plan (10/31/2019 9:11 AM INFECTIOUS WASTE TECHNICIAN): Educated patient on healthy diet/exercise plan. Exercise [...] Prevnar/pneumovax: Last Shingrix: completed Last eye exam: 2018 Assessment & Plan (10/03/2025 6:11 PM INFECTIOUS WASTE TECHNICIAN): PMH 10/02/2025 Last pap: 10/02/2025 Last mammogram:05/06/25 Last dexa: Last colonoscopy/cologuard: 07/19/2017, repeat 2026 Last tdap:06/12/2021 Last Prevnar/pneumovax: Last Shingrix: completed Last eye exam: 2018 Orders: Comprehensive metabolic panel; Future Lipid panel; Future CBC with auto differential; Future Assessment & Plan (2024 2:07 PM CDT): [...] 2019 Assessment & Plan (11/12/2019 8:05 AM INFECTIOUS WASTE TECHNICIAN): PMH: 11/12/2019 Last pap: 05/2016, 11/12/2019 Last mammogram:07/2018, Last dexa: Last colonoscopy/cologuard: 07/19/2017, repeat 2026 Last tdap:02/17/2011 Last Prevnar/pneumovax: Last Shingrix: info Last eye exam: 2019 Postsurgical hypothyroidism 01/26/2016 Assessment & Plan (10/03/2025 6:11 PM INFECTIOUS WASTE TECHNICIAN): Chronic, stable, continue current meds. Followed by specialist Assessment & Plan (2024 2:21 PM CDT): Stable, followed by endocrinology. Recent TSH normal Assessment & Plan (06/12/2021 8:21 AM CDT): Followed by specialist., stable Raynaud disease 01/26/2016 Assessment & Plan (2024 2:21 PM CDT): Stable Vitamin D deficiency 01/26/2016 Assessment & Plan (10/03/2025 6:11 PM INFECTIOUS WASTE TECHNICIAN): Chronic, stable, continue vitamins Assessment & Plan (2024 2:21 PM CDT): [...] phenomenon 03/09/2014 019 Overview (01/28/2017): Raynauds syndrome Encounters Date Type Department Care Team Description 10/07/2025 Results Follow-Up [facility] Family Medicine [address] [place] [phone] Sara Simpson PA Pap and HPV, reflex to HPV Genotypes 10/02/2025 2:00 PM INFECTIOUS WASTE TECHNICIAN Office Visit [address] [phone] Sara Simpson PA Pap smear, as part of routine gynecological examination (Primary Dx); Special screening examination for human papillomavirus (HPV); Other screening breast examination; Postsurgical hypothyroidism; Vitamin D deficiency; Rosacea; Health maintenance examination; Screening, lipid; Screening for diabetes mellitus (DM); Screening, anemia, deficiency, iron; Encounter for well woman exam with routine gynecological exam 09/10/[address] [phone] Sara Simpson PA Medical Records Request 08/05/2025 Results Follow-Up [address] [phone] Sara Simpson PA XR Foot Right 3+ Vw 08/02/2025 3:31 PM CDT - 08/02/2025 11:59 PM CDT Hospital Encounter [facility] Diagnostic Imaging [address] [place] [phone] Right foot pain Discharge Disposition: Discharge to home or self care 08/02/2025 3:00 PM CDT Office Visit [address] [phone] Sara Simpson PA Right foot pain (Primary Dx); Encounter for administration of vaccine 07/30/2025 Nurse Triage [address] [phone] Sara Simpson PA from Last 3 Months Immunizations Immunization Administration Dates Next Due Flucelvax Influenza Quad 08/19/2018 Influenza, Quadrivalent, Spl it, Intramuscular 11/08/2013 Influenza, Trivalent, IM (MDV) 08/19/2018 Influenza, Trivalent, Preser vative Free, Intramuscular 08/02/2025 Influenza, Unspecified 07/24/2023(Deferr ed: Patient Refused),07/28/2022,08/24/2021, 020,08/04/2019 Tdap 06/12/2021,02/17/2011 ZOSTER Recombinant 06/11/2022,11/23/2021 Surgical History Surgery Date Site/Laterality Comments IR FINE NEEDLE ASPIRATION W IMAGE GUIDANCE 12/04/2012 N/A THYROIDECTOMY APPENDECTOMY 03/24/2018 - 04/22/2018 COLONOSCOPY 07/19/2017 DILATION AND CURETTAGE, DIAG NOSTIC / THERAPEUTIC x2 SKIN BIOPSY 09/02/2025 Basal cell Medical History Medical History Date Comments Cystocele, [...] on file Legal Sex Female 1:03 AM INFECTIOUS WASTE TECHNICIAN Gender Identity Not on file Sexual Orientation Not on file Obstetrics History Para Term AB IAB SAB Ectopic Multiple Livin g Live Births 2 Date Outcome GA Total Labor Labor/2nd/3rd Weight Sex Type Anes PTL Orly A1 A5 Name Clin Last Filed Vital Signs Vital Sign Reading Time Taken Comments Blood Pressure 92/60 10/02/2025 2:06 PM INFECTIOUS WASTE TECHNICIAN Pulse 78 10/02/2025 2:06 PM INFECTIOUS WASTE TECHNICIAN Temperature 36.6 C (97.9 F) 10/02/2025 2:06 PM INFECTIOUS WASTE TECHNICIAN Respiratory Rate 16 10/02/2025 2:06 PM INFECTIOUS WASTE TECHNICIAN Oxygen Saturation 99% 10/02/2025 2:06 PM INFECTIOUS WASTE TECHNICIAN Inhaled Oxygen Concentration - - Weight 79 kg (174 lb 3.2 oz) 10/02/2025 2:06 PM INFECTIOUS WASTE TECHNICIAN Height 172.7 cm (5' 8) 10/02/2025 2:06 PM INFECTIOUS WASTE TECHNICIAN Body Mass Index 26.49 10/02/2025 2:06 PM INFECTIOUS WASTE TECHNICIAN Plan of Treatment Health Maintenance Due Date Last Done Comments Hepatitis C Screening 1965 Hepatitis B Screening 02/28/1984 Covid-19 Vaccine ( season) 2025 11/03/2021, 02/10/2021, 01/20/2021 Breast Cancer Screening-Mammogram 05/06/2026 05/06/2025, 04/13/2024, 02/14/2023, Additional history exists Cervical Cancer Screening 10/02/20262024, 11/12/2019, 06/09/2016 Depression Screening 10/02/2026 10/02/2025, 10/02/2025, 08/02/2025, Additional history exists Regular Well Visit/Exam 18-64 10/02/2026 10/02/2025, 2024, 06/12/2021, Additional history exists Colon Cancer Screening-Colonoscopy 07/19/2027 07/19/2017 DTaP/Tdap/Td Vaccine (3 - Td or Tdap) 06/12/2031 06/12/2021, 02/17/2011 Colon Cancer Screening-CT Colonography Discontinued 07/19/2017 Colon Cancer Screening-DNA Stool Discontinued 07/19/2017 Colon Cancer Screening-FIT Discontinued 07/19/2017 Colon Cancer Screening-Sigmoidoscopy Discontinued 07/19/2017 Zoster Vaccine Completed 06/11/2022, 11/23/2021 Influenza Vaccine Completed 08/02/2025, , 08/24/2021, Additional history exists Pneumococcal vaccine <65 Aged Out No longer eligible based on patient's age to complete this topic Procedures Procedure Name Priority Date/Time Associated Diagnosis Comments PAP AND HPV, REFLEX TO HPV GENOTYPES Routine 10/02/2025 2:47 PM INFECTIOUS WASTE TECHNICIAN Pap smear, as part of routine gynecological examination Special screening examination for human papillomavirus (HPV) Encounter for well woman exam with routine gynecological exam XR FOOT RIGHT 3 OR MORE VIEWS Schedule Routine, Read Routine (OP Routine) 08/02/2025 3:42 PM CDT Right foot pain SCREENING MAMMOGRAM BILATERAL W GADIEL Schedule Routine, Read Routine (OP Routine) 05/06/2025 1:34 PM CDT Screening mammogram, encounter for COLONOSCOPY Routine 07/19/2017 from Last 3 Months or Most Recently Relevant to Health Maintenance Results * Pap and HPV, reflex to HPV Genotypes (10/02/2025 2:47 PM INFECTIOUS WASTE TECHNICIAN) CLINICAL INFORMATION: [facility] Comment:ANUAL LMP [facility] Comment:YADIRA Previous Pap [facility] Comment:NONE GIVEN Prev. Bx [facility] Comment:NONE GIVEN SOURCE: [facility] Comment:Cervix, Endocervix Pap, specimen adequacy [facility] Comment:SATISFACTORY FOR RAO LUATION HPV interp [facility] Comment: Cytology Results: Negative for intraepithelial lesion or malignancy. Atrophic pattern; predominantly parabasal cells COMMENTS [facility] Comment: This Pap test has been evaluated with the ThinPrep(R) Imaging System. Veterinary Medical Officer [facility] Comment: DDS, CT(ASCP) CT Screening Location: [facility], [facility] [address] [place] [address] CLIA: [id number] Slide preparation performed at: [facility], [address] [place] [address], [id number] CLIA: [id number] Comment [facility] Comment: EXPLANATORY NOTE: The Pap is a screening test for cervical cancer. It is not a diagnostic test and is subject to false negative and false positive results. It is most reliable when a satisfactory sample, regularly obtained, is submitted with relevant clinical findings and history, and when the Pap result is evaluated along with historic and current clinical information. Human papillomavirus DNA, High Risk E6/E7 Not Detected NOT DETECTED [facility] Comment: Not Detected High Risk HPV types (16,18,31,33,35,39,45,51,52, 56,58,59,66,68) were not detected. Other HPV types which cause anogenital lesions may be present. The significance of the other types of HPV in malignant processes has not been established. Methodology: Real Time PCR Thin prep-Endocervica l 10/02/2025 2:47 PM INFECTIOUS WASTE TECHNICIAN 10/03/2025 4:30 PM INFECTIOUS WASTE TECHNICIAN Sara [facility] CYTOLOGY ORDERABLES Final Result [facility] [address] [place] [address] [address] * XR Foot Right 3+ Vw (08/02/2025 3:42 PM CDT) Anatomical Region Laterality Modality Lower Extremities, Foot Right Computed Radiography 08/04/2025 10:0 0 AM CDT Narrative 08/04/2025 10:02 AM CDT EXAM DESCRIPTION: 1. XR FOOT RIGHT 3 OR MORE VIEWS REASON FOR STUDY: pain to of right foot. dropped landscape pavor on foot. concern for chip or stress fx Anterior foot pain after injury x 1 month ago FINDINGS: Three views submitted without comparison. No acute fracture. 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 Large heel spur is present. Mild 1st metatarsophalangeal joint osteoarthritis with medial sided soft tissue swelling. IMPRESSION: 1. No acute fracture. 2. 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 3. Mild right 1st metatarsophalangeal joint osteoarthritis with medial sided soft tissue swelling. THIS IS AN ELECTRONICALLY VERIFIED FINAL REPORT 08/04/2025 10:02 AM - Electronically signed by Ry Campos M.D. MF: [id number] Report ID: [id number] Reading Location: [id number] Procedure Note Ry Campos MD - 08/04/2025 EXAM DESCRIPTION: 1. XR FOOT RIGHT 3 OR MORE VIEWS REASON FOR STUDY: pain to of right foot. dropped landscape pavor on foot. concern for chip or stress fx Anterior foot pain after injury x 1 month ago FINDINGS: Three views submitted without comparison. No acute fracture. 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 Large heel spur is present. Mild 1st metatarsophalangeal joint osteoarthritis with medial sided soft tissue swelling. IMPRESSION: 1. No acute fracture. 2. 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 3. Mild right 1st metatarsophalangeal joint osteoarthritis with medialsided soft tissue swelling. THIS IS AN ELECTRONICALLY VERIFIED FINAL REPORT 08/04/2025 10:02 AM - Electronically signed by Ry Campos M.D. MF: GINO Report ID: [id number] Reading Location: [id number] Sara [facility] IM[facility] XR PROCEDURES Final Result * Screening Mammogram Bilateral W Gadiel (05/06/2025 1:34 PM CDT) Anatomical Region Laterality Modality Breast Bilateral Mammography Impressions 05/06/2025 2:31 PM CDT BI-RADS ATLAS category (overall): 2 - Benign There is no mammographic evidence of malignancy. A 1 year screening mammogram is recommended. The patient has been or will be contacted. We recommend annual screening mammography for women at average risk of breast cancer beginning at age 40, based on guidelines of the [place] [employer] (ACR Practice Parameter for the Performance of Screening and Diagnostic Mammography) and [place] [employer]. For women with and elevated risk of breast cancer, please refer to the ACR Practice Parameter for specific screening recommendations. The patient will be entered into a reminder system with a target due date of 1 year for her next screening exam. Narrative 05/06/2025 2:31 PM CDT Screening Mammogram Bilateral W Gadiel: 05/06/25 The study was acquired using full field digital technology and interpreted from soft copy. 2D digital mammographic views, as well as 3D digital tomosynthesis were performed in the CC and MLO projections. CLINICAL: Screening mammogram, encounter for. No relevant medical history has been documented for this patient. History of breast cancer in Mother. No comparisons were made when reading this study. BREAST TISSUE: The breasts are heterogeneously dense, which may obscure small masses. FINDINGS: There are benign calcifications in both breasts. No suspicious masses, suspicious calcifications, or other suspicious findings are seen within either breast. There has been no suspicious change. us Self Screening Mammogram IMG MAMMO PROCEDURES Fi nal Result * Colonoscopy (07/19/2017) Anatomical Region Laterality Modality Other Historical Provider ENDOSCOPY PROCEDURES Xochitl l Result from Last 3 Months or Most Recently Relevant to Health Maintenance Insurance [employer] [facility] [employer] [id number] [employer] [id number] Care Teams Ore Grader Relationship Specialty Start Date End Date Sara Simpson PA [address] [place] [address] PCP - General Physician Electrical Engineering Technologist 04/02/19 Dima Velazquez MD [address] [place] [address] Consulting Physician Family Medicine 04/02/19
--- OUTSIDE RECORDS SUMMARY | 2025-10-23 08:30 | XMS_ITS | Encounter Summary ---
Author Organization [facility] Care Team Providers Care Boxing Machine Operator Name Role Phone Sara Smipson Primary Care Provider [phone] Dima Velazquez MD Unavailable [phone] Encounter Details Date Type Department Care Team (Latest Contact Info) Description 02/09/2016 Orders Only [facility] CLINCONV ProviderDonita MD [address] [place], [place] [id number] Social History Tobacco Use Types Packs/Day Years Used Date Smoking Tobacco: Never Assessed Alcohol Use Standard Drinks/Week Comments No 0 (1 standard drink = 0.6 oz pur e alcohol) Comments Unknown Sex and Gender Information Value Date Recorded Sex Assigned at Not on file Legal Sex Female 1:03 AM DOCUMENTATION LIAISON Gender Identity Not on file Sexual [...] on filedocumented in this encounter Care Teams Boxing Machine Operator Relationship Specialty Start Date End Date Sara Simpson PA [address] [facility] [place] [address] PCP - General Physician Php Consultant 04/02/19 Dima Velazquez MD [address] [facility] [place] [address] Consulting Physician Family Medicine 04/02/19 documented as of this encounter
[2025-10-23 09:18] LABS: Hematocrit 39.9 % (37.0-47.0); Hemoglobin 12.9 g/dL (12.0-15.0); Immature Granulocyte Percent A 0.2 % (0-0.5); Lymphocytes Absolute Auto 1.43 K/mm3 (0.9-3.2); Mean Corpuscular HGB Conc 32.3 g/dl (32-36); Mean Corpuscular Hemoglobin 30.4 pg (26-34); Mean Corpuscular Volume 93.9 fl (80-100); Nucleated Red Blood Cells Absolute Auto 0.000 K/mm3 (0.0-0.012); Nucleated Red Blood Cells Perc 0.0 % (0.0-0.2); Platelet Count Result 239 k/mm3 (150-375); Red Blood Count 4.25 M/mm3 (4.2-5.4); White Blood Count 4.1 K/mm3 (4.5-10.0)
[2025-10-23 09:33] LABS: Alanine Aminotransferase 44 U/L (6-35); Albumin Level 4.2 g/dL (3.5-5.1); Alkaline Phosphatase 82 U/L (38-126); Anion Gap 4 mmol/L (4-12); Aspartate Amino Transferase 45 U/L (14-36); Bilirubin,Total 0.4 mg/dL (0.2-1.3); Blood Urea Nitrogen 21 mg/dL (7-17); Calcium 10.0 mg/dL (8.4-10.2); Carbon Dioxide 29 mmol/L (22-30); Chloride 108 mmol/L (98-107); Cholesterol 250 mg/dL (0-200); Estimated Glomerular Filt Rate > 60; Glucose 86 mg/dL (65-110); HDL Direct 68 mg/dL; Potassium 4.5 mmol/L (3.4-5.0); Sodium 141 mmol/L (137-145); Total Protein 6.9 g/dL (6.3-8.2); Triglycerides 72 mg/dL (<150)
== END 2025-10-23 08:22 | disposition home or self-care (01) ==
PROVIDERS: PCP Physician Assistant; Visit Provider Physician Assistant
DX: Z13.1 Encounter for screening for diabetes mellitus (principal); Z13.220 Encounter for screening for lipoid disorders; Z13.0 Encounter for screening for diseases of the blood and blood-forming organs and certain disorders involving the immune mechanism; Z00.00 Encounter for general adult medical examination without abnormal findings
CPT/HCPCS: 36415; 80053; 80061; 85025